=== PATIENT | female | born 1990 | race African-American/Black ===

== ENCOUNTER 2016-12-26 01:19 | Emergency (ER) | payer MEDICAID ==
--- NOTE | 2017-01-03 07:32 | ER ---
ADMIT: 12/26/2016 RM/LOC: ER [facility] MR#: [id number] [address] [facility] [address] [place], [place] [id number] JUAN BENNETT [address] [address] Emergency Room Report SEX: F AGE: 26 : 1990 DATE: 12/26/2016 CHIEF COMPLAINT: Some abdominal pain. HISTORY OF PRESENT ILLNESS: The patient is a 26-year-old female, comes in stating that she has some lower abdominal pain, has not been able to go to the bathroom for the last couple of days. She has had problems with some constipation in the past. She denies any fevers, chills, nausea, or vomiting. Denies any urinary symptoms. She does not have any change in her menstrual cycle. PAST MEDICAL HISTORY: Negative. MEDICATIONS: See nurse's note. ALLERGIES: SEE NURSE'S NOTE. DENIES SMOKING, DRUG, OR ALCOHOL USE. PHYSICAL EXAMINATION: GENERAL: The patient is alert, in no distress HEENT: Head is atraumatic. LUNGS: Clear to auscultation. HEART: Regular rate and rhythm. ABDOMEN: Soft. She does have some tenderness to palpation diffusely primarily in her lower abdomen. She has no rebound tenderness. No guarding. No signs consistent with acute abdomen. SKIN: Warm and dry. We did do an x-ray, which shows moderate to large amount of stool in her colon. Based on her history and my examination and her x-ray, I do believe she has constipation. She was given magnesium citrate and given instructions on how she can try to regulate her bowels by increasing fiber, drinking plenty of fluids and even using stool softeners. She is to follow up with Julianne Cole. DIAGNOSIS: Constipation. Micheal Hernandez MD/ tabatha JOB #: [id number] CC: Micheal Hernandez MD, Attending Physician Julianne Cole, Family Physician
== END 2016-12-26 02:30 | disposition home or self-care (01) ==
LOC: ER 01:19
DX: K59.00 Constipation, unspecified (principal)

== ENCOUNTER 2016-12-27 13:38 | Emergency (ER) | payer MEDICAID ==
--- NOTE | 2017-01-14 11:50 | ER ---
ADMIT: 12/27/2016 RM/LOC: ER [facility] MR#: [id number] [id number] [place], [place] [id number] JUAN BENNETT [address] [address] Emergency Room Report SEX: F AGE: 26 : 1990 DATE: 12/27/2016 ADDENDUM: A 26-year-old, black [place] female coming in with constipation. This is about the third time she is seen. She is just not having very good luck with this. At this time, we did do a couple enemas and got good results. We also gave her a bottle of magnesium citrate. They should clean her out and then advised to use milk of magnesia 30-60 mL at bedtime to maintain her regularity. CONDITION ON DISCHARGE: Improved. Maximus Ansari MD/ tabatha JOB #: [id number] CC: Maximus Ansari MD, Attending Physician Julianne Cole, Family Physician
== END 2016-12-27 17:10 | disposition home or self-care (01) ==
LOC: ER 13:38
DX: K59.00 Constipation, unspecified (principal); F17.200 Nicotine dependence, unspecified, uncomplicated; Z79.899 Other long term (current) drug therapy

== ENCOUNTER 2017-01-22 15:37 | Emergency (ER) | payer MEDICAID ==
--- NOTE | 2017-01-27 16:04 | ER ---
ADMIT: 01/22/2017 RM/LOC: ER [facility] MR#: [id number] [address] [place], [place] [id number] JUAN BENNETT [address] [address] Emergency Room Report SEX: F AGE: 26 : 1990 DATE: 01/22/2017 BRIEF ADDENDUM: Please see my T-sheet for complete review of systems, past medical history, and physical exam. CHIEF COMPLAINT: Abdominal pain. HISTORY OF PRESENT ILLNESS: A 26-year-old female, who presents to the ER with about a year's duration of off and on abdominal pain. The patient states she gets intermittent episodes that usually last 1-2 weeks. She typically gets a full workup and then diagnosed with constipation and placed on a stool softener. States she has been using docusate consistently and is having a normal bowel movement daily at this point. Denies any recent constipation, admits to generalized abdominal pain. She also has some associated nausea and loss of appetite and dizziness. Denies any fever, chills, diarrhea, chest pain, bloody stools, shortness of breath, or problems urinating. She does not noticed the pain worse with movement or food. She has been seen multiple times here in the ER as well as the primary care provider. She has had a CAT scans and blood work done as recently as earlier this month. She states it is unchanged from this time. COURSE IN THE EMERGENCY ROOM: Patient was seen and examined. She is afebrile and nontoxic. No acute distress. Abdomen is diffusely tender, however soft. No guarding or rebound. No McBurney point tenderness. No CVA tenderness. I did get a urine on her. No signs of acute infection. IMPRESSION: Chronic abdominal pain, question gastritis. DISPOSITION: Patient was discharged with a course of Carafate 1 g q.i.d. for 14 days. She is to follow up with her primary care provider. If this is not improving, continue to push fluids. Diet as tolerated. Return with worsening signs or symptoms. Questions are answered to best of the patient's satisfaction. Discharged in stable condition. SONIDO Griffin / Maximus Ansari MD / tabatha JOB #: [id number] CC: Maximus Ansari MD, Attending Physician Julianne Cole, Family Physician
== END 2017-01-22 17:40 | disposition home or self-care (01) ==
LOC: ER 15:37
DX: R10.84 Generalized abdominal pain (principal); G89.29 Other chronic pain